=== PATIENT | female | born 1955 ===

== ENCOUNTER 2024-06-03 12:45 | Inpatient (IN) | payer OTHER ==
[~2024-06-03] VITALS: Ht 198.1 cm; Wt 57.2 kg
[2024-06-03 14:51] VITALS: BP 192/78
[2024-06-03 14:53] VITALS: BP 154/78
[2024-06-16] MEDS ORDERED: POVIDONE-IODINE 118 ML BOTT TOP ONE (15:45)
[2024-06-16] MEDS ORDERED: CEFOXITIN SODIUM 2,000 MG in 0.9 % SODIUM CHLORIDE 100 ML IV ONE (15:45)
[2024-06-16] MEDS ORDERED: RINGERS SOLUTION,LACTATED 1,000 ML IV SCH (17:30)
[2024-06-16] MEDS ORDERED: PROMETHAZINE HCL 50 MG/ML AMPUL IV SCH (18:00)
[2024-06-16] MEDS ORDERED: MEPERIDINE HCL/PF 50 MG/ML VIAL IV SCH (18:00)
[2024-06-16 21:05] VITALS: BP 154/78; O2SAT 95
[2024-06-16 23:16] LABS: HEMATOCRIT 40.7 % (36.0-45.00); HEMOGLOBIN 13.9 g/dL (12.0-15.00); MEAN CELL VOLUME 91.2 fL (80.00-100.00); MEAN CORPUSCULAR HEMOGLOBIN 31.2 pg (27.00-32.0); MEAN CORPUSCULAR HGB CONC 34.2 g/dl (32.0-36.0); PLATELET COUNT 200 K/uL (150-450); RED BLOOD COUNT 4.46 M/uL (4.00-6.00)
[2024-06-17 01:51] VITALS: BP 123/65
[2024-06-17 08:57] VITALS: BP 130/77
[2024-06-17] MEDS ORDERED: SIMETHICONE 125 MG CAPSULE PO SCH (09:00)
[2024-06-17] MEDS ORDERED: Tylenol #3 PO (09:12)
== END 2024-06-17 11:27 | disposition home or self-care (01) | DRG 743 ==
LOC: O/R 06-16 08:54 → SURH 06-16 12:45 → OB/GYN 06-16 19:08
PROVIDERS: ADMIT Obstetrics & Gynecology; ATTEND Obstetrics & Gynecology
PROC: 0UT7FZZ Resection of Bilateral Fallopian Tubes, Via Natural or Artificial Opening With Percutaneous Endoscopic Assistance (ICD-10-PCS; 2024-06-16)
PROC: 0UT2FZZ Resection of Bilateral Ovaries, Via Natural or Artificial Opening With Percutaneous Endoscopic Assistance (ICD-10-PCS; 2024-06-16)
PROC: 0TJB8ZZ Inspection of Bladder, Via Natural or Artificial Opening Endoscopic (ICD-10-PCS; 2024-06-16)
PROC: 0UT9FZZ Resection of Uterus, Via Natural or Artificial Opening With Percutaneous Endoscopic Assistance (ICD-10-PCS; principal; 2024-06-16 14:00)
DX: D25.1 Intramural leiomyoma of uterus (principal); N72 Inflammatory disease of cervix uteri; D27.1 Benign neoplasm of left ovary; N81.11 Cystocele, midline; N84.0 Polyp of corpus uteri; Z20.822 Contact with and (suspected) exposure to COVID-19